=== PATIENT | female | born 1985 | race Two or more races ===

== ENCOUNTER 2023-10-28 02:58 | Emergency (ER) | payer OTHER ==
[~2023-10-28] VITALS: Ht 177.8 cm; Wt 52.6 kg
[2023-10-28] MEDS ORDERED: PRENATA CHEWAB1 EACH PO (03:24)
[2023-10-28] MEDS ORDERED: TETANUS & DIPHTHERIA TOX,ADULT 0.5 ML VIAL IM STA (05:08)
== END 2023-10-28 05:40 | disposition home or self-care (01) ==
LOC: ER 02:59
DX: S61.012A Laceration without foreign body of left thumb without damage to nail, initial encounter (principal); W45.8XXA Other foreign body or object entering through skin, initial encounter; Y93.9 Activity, unspecified; Y92.9 Unspecified place or not applicable; Y99.9 Unspecified external cause status